=== PATIENT | female | born 1990 | race Caucasian/White ===

== ENCOUNTER 2016-11-13 18:42 | Emergency (ER) | payer BC ==
[~2016-11-13] VITALS: Ht 172.7 cm; Wt 66.5 kg
[2016-11-13 18:47] VITALS: Ht 172.7 cm; Wt 66.5 kg
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
--- NOTE | 2016-11-13 19:57 | RADRPT ---
PROCEDURE: CT Head without. CLINICAL INDICATION: Headache, dizziness for 3 days. TECHNIQUE: The study was performed utilizing a multi-slice, multidetector CT scanner. Direct spira l 1 mm axial sections were obtained through the head without the use of intravenous contrast materia l. 1 or more of the following dose reduction techniques were utilized: Automated exposure control, adjustment of the mA and/or kV according to patient's size, iterative reconstruction technique. Co radha and sagittal reformations were obtained. The images were reviewed on a PACS workstation. RADIATION DOSE: CTDIvol: 44.0 mGyDLP: 720.2 mGy-cm COMPARISON: No prior studies are available for comparison. FINDINGS: There is no intracranial hemorrhage, extra-axial fluid collection, mass lesion, midline shift or hyd rocephalus. The ventricles, sulci and cisterns are within normal limits. The white matter is unrem arkable. The welsh-white matter differentiation is preserved. The basal cisterns are patent. The m idline structures are intact. The orbits, calvarium and extracranial soft tissues are normal in ashtyn earance. The visualized paranasal sinuses, mastoid air cells and middle ear cavities are normally ae rated. IMPRESSION: 1. No acute intracranial abnormality. No intracranial hemorrhage, extra-axial fluid collection, ma ss lesion or hydrocephalous. RPTAT: HGAS .Billy Thao MD, MD Date Time Electronically viewed and signed by .Billy Thao MD, MD on 11/13/2016 19:57 .S/
[2016-11-13] MEDS ORDERED: ACET500C5 PO (20:28)
[2016-11-13] MEDS ORDERED: MECL-77 PO (20:28)
== END 2016-11-13 20:37 | disposition home or self-care (01) ==
LOC: FTE 18:42
DX: S06.0X0A Concussion without loss of consciousness, initial encounter (principal); V91.83XA Other injury due to other accident to other powered watercraft, initial encounter; Y92.9 Unspecified place or not applicable
CPT/HCPCS: 70450